=== PATIENT | male | born 1975 | race Caucasian/White ===

== ENCOUNTER 2019-01-17 07:34 | Emergency (ER) | payer OTHER ==
[~2019-01-17] VITALS: Ht 182.9 cm; Wt 90.9 kg
[2019-01-17] MEDS ORDERED: IBUP-2070 PO (08:00)
[2019-01-17] MEDS ORDERED: LISI-660 PO (08:00)
[2019-01-17] MEDS ORDERED: METF-960 PO (08:00)
[2019-01-17 08:06] LABS: GLUCOSE,POINT OF CARE 136 MG/DL (70-110)
[2019-01-17 08:56] VITALS: BP 133/75
== END 2019-01-17 09:05 | disposition home or self-care (01) ==
LOC: EMS 07:34
DX: K40.90 Unilateral inguinal hernia, without obstruction or gangrene, not specified as recurrent (principal); E11.9 Type 2 diabetes mellitus without complications; I10 Essential (primary) hypertension; Z79.899 Other long term (current) drug therapy; Z79.84 Long term (current) use of oral hypoglycemic drugs

== ENCOUNTER → 2019-02-22 | Outpatient (CLI) | payer OTHER ==
[~2019-02-22] MED LIST: IBUP-2070 PO; LISI-660 PO; METF-960 PO
== END | disposition home or self-care (01) ==
LOC: RADPV 10:39
PROVIDERS: ATTEND Internal Medicine
DX: I07.1 Rheumatic tricuspid insufficiency (principal)
CPT/HCPCS: 93306